=== PATIENT | male | born 1940 | race Caucasian/White ===

== ENCOUNTER → 2018-09-23 | Outpatient (CLI) | payer MEDICARE, OTHER, SELFPAY ==
--- NOTE | 2018-09-23 09:17 | CDU_ITS ---
Reason For Study: Carotid artery stenosis Rt. Velocities/BP Lt. Velocities/BP Prox CCA 83.9/13.4 cm/sec. Prox CCA 74/15.4 cm/sec. Mid CCA 108.6/20.0 cm/sec. Mid CCA 77.8/21.1 cm/sec. Dist CCA 86.5/14.7 cm/sec. Dist CCA 76.8/15.4 cm/sec. Prox ICA 79.9/13.4 cm/sec. Prox ICA 77.7/20.0 cm/sec. Mid ICA 71.1/10.7 cm/sec. Mid ICA 66.7/18.8 cm/sec. Dist ICA 86.3/21.1 cm/sec. Dist ICA 65.4/13.9 cm/sec. Rt. ICA/CCA = 1.0. Lt. ICA/CCA = 1.0. Prox ECA 79.9 cm/sec. Prox ECA 93.7/4.1 cm/sec. Rt. Vert. 43.6/8.0 cm/sec. Lt. Vert. 43.7/13.5 cm/sec. Right Extracranial There is heterogeneous, smooth atherosclerotic plaque noted in the right common carotid artery. There is heterogeneous, irregular atherosclerotic plaque noted in the right internal carotid artery. There is intimal thickening but no significant atherosclerotic plaque noted in the right external carotid artery. Antegrade flow is noted in the right vertebral artery. Left Extracranial There is heterogeneous, smooth atherosclerotic plaque noted in the left common carotid artery. There is heterogeneous, irregular atherosclerotic plaque noted in the left internal carotid artery. There is intimal thickening but no significant atherosclerotic plaque noted in the left external carotid artery. Antegrade flow is noted in the left vertebral artery. Procedure Carotid Duplex 57092. Exam performed in department. Interpretation Summary Mild (<50%) stenosis right extracranial internal carotid. Mild (<50%) stenosis left extracranial internal carotid. Flow within the vertebral arteries is antegrade bilaterally. Ordering Physician: April Moulton Referring Physician: April Moulton Performed By: Lilo Best RVT
== END | disposition home or self-care (01) ==
PROVIDERS: Family Provider Internal Medicine; PCP Internal Medicine; Referring Provider Internal Medicine; Visit Provider Internal Medicine
DX: I65.23 Occlusion and stenosis of bilateral carotid arteries (principal)
CPT/HCPCS: 93880

== ENCOUNTER → 2020-02-01 06:19 | Outpatient (CLI) | payer MEDICARE, OTHER, SELFPAY ==
[2020-01-17 11:29] VITALS: BMI 27.8
--- NOTE | 2020-02-01 09:45 | STRESSREP ---
Stress Test Report Exercise myocardial perfusion stress test. 79-year-old man with a history of coronary artery disease status post previous coronary artery bypass surgery. Stress protocol: Resting EKG demonstrates normal sinus rhythm with a rate of 65 bpm normal intervals are noted resting blood pressure is 140/74 mmHg. The patient exercised according to the regular Curt protocol for a total duration of 6 minutes. The maximum heart rate attained was 131 bpm which was 92% of maximum predicted heart rate the maximum workload was 7 metabolic equivalents. At rest there were no ST or T wave changes noted suggest ischemia. At peak exercise there was upsloping ST depression changes noted of approximately 1 mm in leads II, III and aVF V5 and V6. During recovery the changes immediately became less pronounced and more upsloping. The test was terminated due to the target heart rate being achieved. No chest pain was noted. The resting blood pressure was 140/74 with a peak blood pressure 174/60 mmHg which was normal. Myocardial perfusion protocol. 11.3 mCi of technetium 99m sestamibi was injected at rest. The patient exercised according to the regular Curt protocol for a total duration of 6 minutes. At peak exercise 32.2 mCi of technetium 99m sestamibi was injected stress images were obtained stress and rest images were reconstructed and compared in the short axis vertical long and horizontal long axis. Gated images were also obtained P Perfusion SPECT analysis: Review of the stress images demonstrate normal uptake of tracer noted in all areas of the myocardium the resting images similar demonstrate normal uptake of tracer noted in all areas of the myocardium. No areas of reversibility are noted to suggest ischemia no previous infarct is noted. Gated SPECT analysis: The gated ejection fraction is 71%. Conclusion: Normal exercise myocardial perfusion stress test with no evidence of ischemia. Preserved ejection fraction.
== END ==
PROVIDERS: PCP Internal Medicine; Referring Provider Internal Medicine Cardiovascular Disease; Visit Provider Internal Medicine Cardiovascular Disease
DX: I25.10 Atherosclerotic heart disease of native coronary artery without angina pectoris (principal); Z95.1 Presence of aortocoronary bypass graft
CPT/HCPCS: 78452; 93017; A9500; A4216

== ENCOUNTER → 2020-10-01 10:34 | Outpatient (CLI) | payer MEDICARE, OTHER, SELFPAY ==
[2020-01-17 11:29] VITALS: BMI 27.8
--- NOTE | 2020-10-01 10:37 | ART_ITS ---
Reason For Study: PVD Procedure A bilateral lower extremity continuous wave Doppler with analog waveform analysis and ankle brachial indexes. Left Segmental Pressures Left brachial= 184mmHg. Left posterior tibial artery = 187mmHg. Left dorsalis pedis artery = 179mmHg. Left digit = 104 mmHg. The left dorsalis pedis waveforms are biphasic. The left posterior tibial artery waveforms are biphasic. Right Segmental Pressures Right brachial= 173mmHg. Right posterior tibial artery = 204mmHg. Right dorsalis pedis artery = 184mmHg. Right digit = 83 mmHg. The right dorsalis pedis waveforms are biphasic. The right posterior tibial artery waveforms are biphasic. Indices The right ankle brachial index by the dorsalis pedis is 1.00. The right ankle brachial index by the posterior tibial artery is 1.11. The right digital-brachial index is 0.45. The left ankle brachial index by the dorsalis pedis is 0.97. The left ankle brachial index by the posterior tibial artery is 1.02. The left digital-brachial index is 0.57. VL/Ankle Brachial Index Interpretation Summary Biphasic Doppler waveforms are noted at ankle level bilaterally. Pulse-volume r ecordings appear satisfactory at ankle and digital levels bilaterally. Resting ankle-brachial in dices are normal bilaterally. The right digital-brachial index is moderately diminished. The lef t digital-brachial index is mildly diminished. Arterial flow appears normal at ankle level bilaterally. There is evidence of m oderate, distal, small-vessel arterial occlusive disease at digital level on the right. There is evidence of mild, distal, small-vessel arterial occlusive disease at digital level on the left. Ordering Physician: April Moulton Referring Physician: April Moulton Performed By: Lilo Best RVLissette
== END ==
PROVIDERS: PCP Internal Medicine; Referring Provider Internal Medicine; Visit Provider Internal Medicine
DX: I73.9 Peripheral vascular disease, unspecified (principal)
CPT/HCPCS: 93922

== ENCOUNTER → 2022-01-29 | Outpatient (CLI) | payer MEDICARE, OTHER, SELFPAY ==
--- NOTE | 2022-01-29 07:35 | CDU_ITS ---
Reason For Study: Stenosis Rt. Velocities/BP Lt. Velocities/BP Prox CCA 72.1/12.1 cm/sec. Prox CCA 94.3/12.1 cm/sec. Mid CCA 104.7/13.4 cm/sec. Mid CCA 82.5/16 cm/sec. Dist CCA 70.8/9.5 cm/sec. Dist CCA 68.2/14.7 cm/sec. Prox ICA 59.1/5.6 cm/sec. Prox ICA 82.7/11.5 cm/sec. Mid ICA 61.7/12.1 cm/sec. Mid ICA 75.4/15.2 cm/sec. Dist ICA 82.5/14.7 cm/sec. Dist ICA 64.5/9.7 cm/sec. Rt. ICA/CCA = 1.14. Lt. ICA/CCA = 1.00. Prox ECA 70.8/5.6 cm/sec. Prox ECA 137.5/7.9 cm/sec. Rt. Vert. 52.5/9.5 cm/sec. Lt. Vert. 41.3/6.4 cm/sec. Right Extracranial There is homogeneous, smooth atherosclerotic plaque noted in the right common carotid artery. There is heterogeneous, irregular atherosclerotic plaque noted in the right internal carotid artery. There is intimal thickening but no significant atherosclerotic plaque noted in the right external carotid artery. Antegrade flow is noted in the right vertebral artery. Left Extracranial There is heterogeneous, irregular atherosclerotic plaque noted in the left common carotid artery. There is heterogeneous, irregular atherosclerotic plaque noted in the left internal carotid artery. There is intimal thickening but no significant atherosclerotic plaque noted in the left external carotid artery. Antegrade flow is noted in the left vertebral artery. Procedure Carotid Duplex [id number]. This is a Carotid Duplex examination using B-mode, color flow and specral Doppler. Exam performed in department. VL/Carotid Duplex Ultrasound Interpretation Summary Mild (<50%) stenosis right extracranial internal carotid. Mild (<50%) stenosis left extracranial internal carotid. Flow within the vertebral arteries is antegrade bilaterally. Ordering Physician: April Moulton Referring Physician: April Moulton Performed By: Lilo Best RVT
== END | disposition home or self-care (01) ==
LOC: CVS 07:31
PROVIDERS: PCP Internal Medicine; Referring Provider Internal Medicine; Visit Provider Internal Medicine
DX: I65.23 Occlusion and stenosis of bilateral carotid arteries (principal)
CPT/HCPCS: 93880

== ENCOUNTER → 2022-02-04 | Outpatient (CLI) | payer MEDICARE, OTHER, SELFPAY ==
--- NOTE | 2022-02-04 10:35 | ECHOD_ITS ---
Reason For Study: s/p CABG Procedure This was a 2D Doppler, Color Flow transthoracic echocardiogram. Exam performed in department. Left Ventricle Normal LV size. Sigmoid septum. Left ventricular systolic function is normal. The estimated ejection fraction is 60 %. Stage 2 diastolic dysfunction. No regional wall motion abnormalities noted. Right Ventricle Normal RV size. Normal systolic function. Atria Normal left atrium. Normal right atrium. Mitral Valve Normal mitral valve. Mild (1+) eccentric mitral valve insufficiency. Tricuspid Valve Normal tricuspid valve. Mild tricuspid valve insufficiency. Pulmonary artery systolic pressure is 31 mmHg. Aortic Valve Normal aortic valve. Trisinus/trileaflet aortic valve. Pulmonic Valve Normal pulmonic valve. Great Vessels Normal aortic root. The pulmonary artery is normal size. Normal inferior vena cava. Pericardium/Pleural No pericardial effusion. MMode/2D Measurements & Calculations LVIDd: 4.4 cm IVSd: 1.1 cm Ao root diam: 3.6 cm LVIDs: 2.6 cm LVPWd: 1.1 cm LA dimension: 4.4 cm RVDd: 3.7 cm FS: 39.6 % LAV(MOD-bp): 63.1 ml LA A4 area: 22.4 cm2 RA A4 area: 17.6 cm2 LAV(MOD-bp) Indexed: 34.6 ml/m2 LAV(MOD-sp2): 50.7 ml LAV(MOD-sp4): 63.1 ml Time Measurements MV dec time: 0.20 sec Doppler Measurements & Calculations MV E max compa: 81.8 cm/sec Lat Peak E' Compa: 10.2 cm/sec Med Peak E' Compa: 8.4 cm/sec MV A max compa: 67.0 cm/sec E/E' lat: 8.1 E/E' med: 9.7 MV E/A: 1.2 MV V2 max: 87.5 cm/sec MV P1/2t max compa: 87.2 cm/sec Ao V2 max: 103.7 cm/sec MV max P.1 mmHg MV P1/2t: 63.3 msec Ao max P.3 mmHg MV V2 mean: 49.0 cm/sec MV dec slope: 403.3 cm/sec2 Ao V2 mean: 73.0 cm/sec MV mean P.1 mmHg MVA(P1/2t): 3.5 cm2 Ao mean P.4 mmHg MV V2 VTI: 28.1 cm Ao V2 VTI: 29.6 cm LV V1 max: 68.9 cm/sec PA V2 max: 65.7 cm/sec PI end-d compa: 118.4 cm/sec LV V1 max P.9 mmHg LV V1 mean P.1 mmHg LV V1 mean: 49.1 cm/sec LV V1 VTI: 21.1 cm TR max compa: 261.4 cm/sec TR max P.4 mmHg ECHO/Echo Complete Interpretation Summary Normal LV size. Sigmoid septum. Left ventricular systolic function is normal. The estimated ejection fraction is 60 %. No regional wall motion abnormalities noted. Mild (1+) eccentric mitral valve insufficiency. Mild tricuspid valve insufficiency. Pulmonary artery systolic pressure is 31 mmHg. Stage 2 diastolic dysfunction. Ordering Physician: James Shelton Referring Physician: April Moulton M.D. Performed By: Nash Abdi RCS
== END | disposition home or self-care (01) ==
LOC: CVS 10:35
PROVIDERS: PCP Internal Medicine; Referring Provider Internal Medicine Cardiovascular Disease; Visit Provider Internal Medicine Cardiovascular Disease
DX: I25.810 Atherosclerosis of coronary artery bypass graft(s) without angina pectoris (principal); Z95.1 Presence of aortocoronary bypass graft
CPT/HCPCS: 93306

== ENCOUNTER → 2023-05-20 | Outpatient (CLI) | payer MEDICARE, OTHER, SELFPAY ==
--- NOTE | 2023-05-20 18:08 | STRESSREP ---
Stress Test Report Exercise myocardial perfusion stress test. 82-year-old man with a history of coronary disease Stress protocol: Resting EKG demonstrates normal sinus rhythm with a rate of 69 bpm resting blood pressure is 122/[address] depression is noted in leads II, III and aVF. The patient exercised according to the regular Curt protocol for a total duration of 6 minutes and 16 seconds attaining a maximum heart rate of 127 bpm which was 92% of maximum predicted heart rate; the maximum workload was 7.7 metabolic equivalents. At rest there were ST changes noted at rest which worsened with exercise by approximately 0.[address] depression which did not meet the criteria for ischemia. No clinical angina was noted the test was terminated due to the target heart rate being achieved/fatigue. The peak blood pressure was 184/62 mmHg. Rate-pressure product was 18,000. Myocardial perfusion protocol. 11.5 mCi of technetium 99m sestamibi was injected at rest. The patient exercised according to regular Curt protocol for total duration of 6 minutes and 16 seconds and at peak exercise 34.4 mCi of technetium 99m sestamibi was injected stress images were obtained stress and rest images were reconstructed in comparing the short axis vertical long and horizontal long axis. Gated images were also obtained. Perfusion SPECT analysis: Review of the stress images demonstrate normal uptake of tracer noted in all areas of the myocardium. Evidence of a basal inferior perfusion defect was noted. The resting images similarly demonstrate normal uptake of tracer noted in all areas of the myocardium. There is evidence of a perfusion basal inferior defect noted. No areas of reversibility are noted to suggest ischemia, but the above is suggestive of a basal inferior infarct. Gated SPECT analysis: The gated ejection fraction is 56%. Conclusion: Normal exercise myocardial perfusion stress test at a moderate workload Basal inferior infarct present Preserved ejection fraction.
== END | disposition home or self-care (01) ==
LOC: CVS 06:35
PROVIDERS: PCP Internal Medicine; Referring Provider Internal Medicine Cardiovascular Disease; Visit Provider Internal Medicine Cardiovascular Disease
DX: I25.10 Atherosclerotic heart disease of native coronary artery without angina pectoris (principal); Z95.1 Presence of aortocoronary bypass graft
CPT/HCPCS: 78452; 93017; A9500

== ENCOUNTER → 2025-03-21 | Outpatient (CLI) | payer MEDICARE, OTHER, SELFPAY | END | disposition home or self-care (01) | LOC: PSN 11:47 | PROVIDERS: PCP Internal Medicine; Referring Provider Internal Medicine; Visit Provider Internal Medicine | DX: R94.31 Abnormal electrocardiogram [ECG] [EKG] (principal) | CPT/HCPCS: 93225; 93226 ==

== ENCOUNTER → 2025-03-22 | Outpatient (CLI) | payer MEDICARE, OTHER, SELFPAY ==
--- NOTE | 2025-03-22 12:14 | ECHOD_ITS ---
Reason For Study Reason For Study: ABNORMAL EKG Procedure This was a 2D Doppler, Color Flow transthoracic echocardiogram. Exam performed in department. Left Ventricle Normal LV size. Mild concentric left ventricular hypertrophy. The left ventricular ejection fraction is 60 %. Stage 1 diastolic dysfunction. Right Ventricle Normal right ventricle. Atria There is mild biatrial dilatation. Mitral Valve Moderate (2+) eccentric mitral valve insufficiency. Tricuspid Valve Trivial tricuspid valve insufficiency. Unable to estimate RV systolic pressure due to insufficient tricuspid regurgitant envelope. Aortic Valve Aortic sclerosis, no stenosis. Pulmonic Valve Trivial pulmonic valve insufficiency. Great Vessels Normal sized aortic root. Pericardium/Pleural No pericardial effusion. MMode/2D Measurements & Calculations LVIDd: 4.3 cm IVSd: 1.3 cm Ao root diam: 3.6 cm LVIDs: 2.7 cm LVPWd: 1.1 cm RVDd: 3.3 cm FS: 37.7 % LAV(MOD-bp): 69.1 ml LVAd ap4: 25.6 cm2 LVAd ap2: 24.5 cm2 LAV(MOD-bp) Indexed: 38.7 ml/m2 LVLd ap4: 7.4 cm LVLd ap2: 6.9 cm LAV(MOD-sp2): 65.0 ml EDV(MOD-sp4): 73.5 ml EDV(MOD-sp2): 73.6 ml LAV(MOD-sp4): 63.8 ml EDV(sp4-el): 75.5 ml EDV(sp2-el): 73.9 ml LVAs ap4: 14.9 cm2 LVAs ap2: 13.8 cm2 LVLs ap4: 6.3 cm LVLs ap2: 5.9 cm ESV(MOD-sp4): 32.3 ml ESV(MOD-sp2): 28.8 ml ESV(sp4-el): 30.0 ml ESV(sp2-el): 27.1 ml EF(MOD-sp4): 56.1 % EF(MOD-sp2): 60.9 % EF(sp4-el): 60.3 % SV(MOD-sp4): 41.2 ml SV(MOD-sp2): 44.8 ml SV(sp4-el): 45.5 ml SI(MOD-sp4): 23.1 ml/m2 SI(MOD-sp2): 25.1 ml/m2 LA A4 area: 22.6 cm2 LA dimension(2D): 4.3 cm RA A4 area: 18.5 cm2 TAPSE: 2.1 cm Time Measurements MV dec time: 0.20 sec Doppler Measurements & Calculations MV E max compa: 75.7 cm/sec Lat Peak E' Compa: 12.3 cm/sec Med Peak E' Compa: 6.1 cm/sec MV A max compa: 77.0 cm/sec E/E' lat: 6.1 E/E' med: 12.3 MV E/A: 0.98 MV V2 max: 85.0 cm/sec MV P1/2t max compa: 75.9 cm/sec Ao V2 max: 78.3 cm/sec MV max P.9 mmHg MV P1/2t: 85.4 msec Ao max P.5 mmHg MV V2 mean: 46.6 cm/sec Ao V2 mean: 49.0 cm/sec MV mean P.0 mmHg MV dec slope: 260.3 cm/sec2 Ao mean P.1 mmHg MV V2 VTI: 26.6 cm MVA(P1/2t): 2.6 cm2 Ao V2 VTI: 17.7 cm AV (velocity ratio): 0.91 LV V1 max: 63.7 cm/sec PA V2 max: 59.9 cm/sec LV V1 max P.6 mmHg PI dec slope: 123.2 cm/sec2 LV V1 mean P.74 mmHg LV V1 mean: 40.9 cm/sec LV V1 VTI: 16.1 cm TR max compa: 232.8 cm/sec TR max P.7 mmHg ECHO/Echo Complete Interpretation Summary Mild concentric left ventricular hypertrophy. The left ventricular ejection fraction is 60 %. Stage 1 diastolic dysfunction. There is mild biatrial dilatation. Moderate (2+) eccentric mitral valve insufficiency. Ordering Physician: April Moulton Referring Physician: April Moulton Performed By: Merle Duarte, AMBAR, RVT
== END | disposition home or self-care (01) ==
LOC: CVS 12:10
PROVIDERS: PCP Internal Medicine; Referring Provider Internal Medicine; Visit Provider Internal Medicine
DX: R94.31 Abnormal electrocardiogram [ECG] [EKG] (principal)
CPT/HCPCS: 93306

== ENCOUNTER → 2025-05-29 | Outpatient (CLI) | payer MEDICARE, OTHER, SELFPAY ==
[2025-05-29 08:22] LABS: Mucous, Urine 0 SEEN /hpf (<or=2+); Red Blood Cells-Urine 0 SEEN /hpf (0-5)
[2025-05-29 10:40] LABS: Hematocrit 42.1 % (40-54); Hemoglobin 14.0 g/dL (13.0-16.5); Immature Granulocytes Count 0.100 X10^3/uL (0.0-0.0); Mean Corp Hgb Conc 33.3 g/dL (32-36); Mean Corpuscular Volume 85.9 fL (80-94); Mean Platelet Vol. 11.1 fl (6.2-12.0); NRBC Flagged by Analyzer 0 % (0-5); Platelet Count 225 K/mm3 (150-450); RBC Distribution Width CV 15.0 % (11.6-14.6); RBC Distribution Width SD 45.9 fl (35.1-43.9); Red Blood Count 4.90 M/mm3 (4.6-6.2); White Blood Count 11.5 K/mm3 (4.4-11.0)
[2025-05-29 10:45] LABS: Color, Urine Yellow (Yellow); Glucose, Dipstick Normal (Normal); Ketone-Dipstick Negative (Negative); Leukocyte Esterase-Dipstick Negative /ul (Negative); Nitrite-Dipstick Negative (Negative); Occult Blood-Urine Negative /ul (Negative); Protein-Dipstick 15 mg/dl (Negative); Specific Gravity, Urine 1.010 (1.002-1.030); Urine Bilirubin Dipstick Negative (Negative)
[2025-05-29 10:59] LABS: Creatinine, Urine (random) 150.00 mg/dL (39.00-259.00); Microalbumin,Random Urine 38.9 mg/L (<20 mg/L)
[2025-05-29 11:03] LABS: Squamous Epithelial Cells - UA 0-5 SEEN /hpf (0-5)
[2025-05-29 11:08] LABS: AST(SGOT) 38 U/L (<=37); Alanine Aminotransfer ALT/SGPT 29 U/L (<=46); Albumin, Serum 4.5 g/dL (3.4-4.8); Alkaline Phosphatase 39 U/L (40-129); Anion Gap 10 (7-18); BUN 24 mg/dL (4-19); BUN/Creat Ratio 17.5 RATIO (10-20); Calcium,Total 9.1 mg/dL (7.6-11.0); Carbon Dioxide 26.6 mmol/L (20.0-29.0); Chloride 103 mmol/L (96-106); Cholesterol 151 mg/dL (<=200); Globulin 2.8 g/dL (2.2-4.2); Glucose 114 mg/dL (70-99); Low Density Lipoprotein Calc. 86 mg/dL; Potassium 4.4 mmol/L (3.5-5.1); Triglycerides 173 mg/dL; Very Low Density Lipoprotein 35 mg/dL (5-40); cholesterol:hdl ratio screen 4.28
== END | disposition home or self-care (01) ==
LOC: CIMLAB 08:19
PROVIDERS: PCP Internal Medicine; Referring Provider Internal Medicine; Visit Provider Internal Medicine
DX: E11.9 Type 2 diabetes mellitus without complications (principal); R80.9 Proteinuria, unspecified; E78.2 Mixed hyperlipidemia
CPT/HCPCS: 36415; 80053; 80061; 81001; 82043; 82570; 84443; 85025